=== PATIENT | female | born 1975 | race Caucasian/White ===

== ENCOUNTER 2016-11-14 15:05 | Outpatient (CLI) | payer OTHER, SELFPAY ==
[~2016-11-14] VITALS: Ht 175.3 cm; Wt 146.5 kg
[2016-11-16] MEDS ORDERED: IRON240 MG PO (10:49)
[2016-11-16] MEDS ORDERED: AMLODIPINE BESYL5 MG PO (10:49)
[2016-11-16] MEDS ORDERED: TRANDATE DPS100 MG PO (10:50)
[2016-11-16] MEDS ORDERED: PRENATAL VIT1 TAB PO (10:50)
--- NOTE | 2016-11-24 15:03 | HP ---
ADMIT: 11/14/2016 RM/LOC: 224 [facility] MR#: [id number] [address] [address] YENY DALILA D [address] [place] [address] History and Physical SEX: F AGE: 41 : 1975 DATE OF SERVICE: 11/14/2016 CHIEF COMPLAINT: Chronic hypertension with worsening blood pressures. HISTORY OF PRESENT ILLNESS: The patient is a 41-year-old, 4, para 1-1- 1-3 with an intrauterine at 34 and 1/7th weeks by a 9-week ultrasound, who presented to the [facility] for a routine OB visit today. She was also seen by [facility] due to her history of chronic hypertension and advanced maternal age. At that visit, her blood pressure was noted to be 160 systolic, and Dr. Falcon, perinatologist, did recommend admission to the hospital with serial blood pressure checks, 24-hour urine, and laboratory assessment for a possible superimposed preeclampsia or worsening chronic hypertension. The patient was agreeable to this plan and presented to the hospital for the above reasons. PAST MEDICAL HISTORY: 1. Chronic hypertension. 2. Anxiety. 3. Morbid obesity. 4. Anemia during . 5. History of preeclampsia in previous . 6. Fatty liver. PAST SURGICAL HISTORY: deliveries in 1999 and 2010. FAMILY HISTORY: Paternal side with hypertension. Maternal side with diabetes. Maternal grandfather with lung cancer. Maternal grandmother with heart disease. SOCIAL HISTORY: The patient denies alcohol, tobacco, or illicit drug use. 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 The patient is . MEDICATIONS: 1. vitamins 1 tablet p.o. daily. 2. Ferrous gluconate 1 tablet p.o. b.i.d. 3. Amlodipine besylate 5 mg 1 tablet p.o. daily. 4. Labetalol 500 mg p.o. b.i.d. ALLERGIES: NO KNOWN MEDICAL ALLERGIES. REVIEW OF SYSTEMS: The patient denies headaches, visual changes, right upper quadrant pain, vaginal bleeding, loss of fluid, uterine contractions, or decreased movement. LABORATORY DATA: Laboratory assessment today. CBC; white count 10.7, hemoglobin 10.3, hematocrit 31.2, and platelet count 237. CMP; sodium 143, potassium 3.5, chloride 109, CO2 of 23, BUN 7, creatinine 0.7, glucose 97, calcium 8.7, AST 52, ALT 100, total bilirubin 0.3, alkaline phosphatase 131, ADMIT: 11/14/2016 RM/LOC: 224 [facility] MR#: [id number] [address] [place] [id number] DALILA SAINI [address] [place] [address] History and Physical SEX: F AGE: 41 : 1975 uric acid 3.5, and LDH 148. A 24-hour urine is pending. PHYSICAL EXAMINATION: HEART: Regular rate and rhythm. LUNGS: Clear to auscultation bilaterally. ABDOMEN: Soft, nontender, gravid. EXTREMITIES: No clubbing, cyanosis, or edema. VITAL SIGNS: Blood pressures on admission to the hospital are in the 130s/70s to 80s, pulse 70s to 80s, and oxygen saturation 91% to 99% on room air. heart tones were noted in the 150s with 15 x 15 accelerations, moderate long-term variability, and no decelerations. No uterine contractions are noted on the monitor. ASSESSMENT AND PLAN: 1. This is a 41-year-old, 4, para 1-1-1-3, with intrauterine at 34 and 1/7th weeks by 9-week ultrasound, who presents to Labor and Delivery for monitoring due to chronic hypertension with worsening blood pressures. Currently, there is no evidence of preeclampsia. Labs were all normal. Blood pressures have been normal here. We will continue her 24-hour urine, and serial blood pressure checks as well as her home blood pressure medications. 2. For fatty liver, the patient's LFTs are improved from baseline. There is no concern for developing HELLP syndrome. 3. Fetus is reassuring on nonstress testing. Sally Mortensen MD/ ilsa JOB #: [id number] CC: Sally Mortensen, Attending Physician UNKNOWN, Family Physician
[2016-12-08] MEDS ORDERED: COLACE-DPS100 MG PO (13:14)
[2016-12-08] MEDS ORDERED: MOTRIN-DPS800 MG PO (13:14)
[2016-12-08] MEDS ORDERED: NIPPLECREAM TP (13:15)
[2016-12-08] MEDS ORDERED: PERCOCET 5 DPS1 TAB PO (13:15)
== END 2016-11-15 17:50 | disposition home or self-care (01) ==
LOC: BC 15:05 → 2LDRP 15:05 → BC 15:06 → 2LDRP 15:06 → WOR 16:47 → 2LDRP 11-15 11:16 → BC 11-15 11:16 → 2LDRP 11-15 17:50 → BC 11-15 17:50 → 2LDRP 11-15 17:50 → BC 12-25 08:00
DX: O16.1 Unspecified maternal hypertension, first trimester (principal); O99.011 Anemia complicating pregnancy, first trimester; F41.9 Anxiety disorder, unspecified; E66.01 Morbid (severe) obesity due to excess calories; K76.0 Fatty (change of) liver, not elsewhere classified; Z79.899 Other long term (current) drug therapy

== ENCOUNTER 2016-12-05 05:33 | Inpatient (IN) | payer OTHER, SELFPAY ==
[~2016-12-05] VITALS: Ht 172.7 cm; Wt 149.2 kg
[~2016-12-05 05:33] MED LIST: AMLODIPINE BESYL5 MG PO; IRON240 MG PO; PRENATAL VIT1 TAB PO; TRANDATE DPS100 MG PO
[2016-12-08] MEDS ORDERED: COLACE-DPS100 MG PO (13:14)
[2016-12-08] MEDS ORDERED: MOTRIN-DPS800 MG PO (13:14)
[2016-12-08] MEDS ORDERED: PERCOCET 5 DPS1 TAB PO (13:15)
[2016-12-08] MEDS ORDERED: NIPPLECREAM TP (13:15)
--- NOTE | 2017-01-24 03:27 | OR ---
ADMIT: 12/05/2016 RM/LOC: 223 [facility] MR#: [id number] [address] [facility] [address] [place] [id number] DALILA SAINI Dc [address] [place] [id number] Operative/Delivery Room Report SEX: F AGE: 41 : 1975 SURGERY DATE: 12/05/2016 SURGEON: Sally Mortensen MD PREOPERATIVE DIAGNOSES: 1. Intrauterine at 37-1/7th weeks gestation. 2. Previous x2. 3. Chronic hypertension with superimposed preeclampsia. POSTOPERATIVE DIAGNOSES: 1. Intrauterine at 37-1/7th weeks gestation. 2. Previous x2. 3. Chronic hypertension with superimposed preeclampsia. PROCEDURE: Repeat low transverse . ASSISTANTS: 1. Ernesto Ambrose MD. 2. Philly Bhakta MD., Resident. ANESTHESIA: Spinal. ESTIMATED BLOOD LOSS: 800 mL. URINE OUTPUT: 400 mL clear urine. IV FLUIDS: 1700 mL crystalloid. CONDITION: Good. COMPLICATIONS: None. COUNTS: Correct x4 per operating room staff. FINDINGS: 1. Viable male delivered in vertex presentation at 0741 hours. Weight 3170 g. scores 8 and 9. 2. Normal maternal anatomy. DESCRIPTION OF PROCEDURE: The patient was taken to the operating room where spinal anesthesia was obtained without difficulty. She was then prepared and draped in the normal sterile fashion in the dorsal supine position with a leftward tilt. A Pfannenstiel skin incision was then made with a scalpel and carried through to the underlying layer of fascia. The fascia was then incised in the midline and the incision extended laterally using the Anderson scissors. The superior aspect of the fascial incision was then grasped with the Zuly clamps, elevated, and the underlying rectus muscles dissected off with Bovie electrocautery. Attention was then turned to the inferior aspect of this incision which, in a similar fashion, was grasped with the Zuly clamps, ADMIT: 12/05/2016 RM/LOC: 223 [facility] MR#: [id number] [address] [address] DALILA SAINI [address] [place] [address] Operative/Delivery Room Report SEX: F AGE: 41 : 1975 elevated, and the underlying rectus muscles dissected off sharply. The rectus muscles were in the midline with Caty clamps and the peritoneum entered sharply with the Anderson scissors. A finger sweep revealed no intraabdominal adhesions. The scar tissue between the rectus muscles were taken down sharply with the Anderson scissors, and the peritoneal incision was then extended superiorly and inferiorly with good visualization of the bladder. The bladder blade was then inserted and the vesicouterine peritoneum identified, tented up, and entered sharply with the Metzenbaum scissors. The incision was then extended laterally and the bladder flap was created digitally. Palpation of the uterus revealed the fetus to be not well engaged in the pelvis. A uterine incision was then made on the upper portion of the lower uterine segment. The hysterotomy was then extended laterally manually. The membranes were ruptured using an Allis clamp. The head was unable to be delivered with usual maneuvers and two hands were inserted into the uterine cavity to deliver the 's vertex to the hysterotomy. We were then able to use fundal pressure to deliver the remainder of the fetus. A nuchal cord x2 was reduced. There was noted to be a true knot in the cord at this point in time, but it is unsure whether this was created by reduction of the nuchal cord. The cord was then doubly clamped and cut. The was handed off to the awaiting nurse. Cord blood was sent. The infant's weight was 3170 g. scores were 8 and 9. The placenta was then removed by fundal massage of the uterus. The uterus was then exteriorized and cleared of all clots and debris. The uterine incision was then repaired with #1 chromic in a running, locked fashion. Several chyfxw-kf-zhqlh stitches were used to obtain excellent hemostasis. The uterus was then returned to the abdomen. The gutters were cleared of all clots. The hysterotomy was reinspected and hemostasis was achieved with Bovie electrocautery. The fascial incision was then reapproximated with 0 Vicryl. The subcutaneous tissue was closed using 2-0 Vicryl Rapide. The skin was closed with 4-0 Vicryl Rapide. The patient tolerated the procedure well. Sponge, lap, needle counts were correct x4 per operating room staff. The patient and infant were taken to her room in stable condition at the conclusion of the procedure. EDIT: 12/06/2016 0639 njv Sally Mortensen MD/ ilsa JOB #: [id number] CC: Sally Mortensen, Attending Physician Elle Schrader, Family Physician
--- NOTE | 2017-01-24 03:27 | HP ---
ADMIT: 12/05/2016 RM/LOC: [facility] MR#: [id number] [address] [address] YENY DALILA Dc [address] [place] [address] Pre-OP History and Physical SEX: F AGE: 41 : 1975 DATE OF SERVICE: 12/05/2016 CHIEF COMPLAINT: Need for section. HISTORY OF PRESENT ILLNESS: The patient is a 41-year-old, G4, P1-1-1-3, with an intrauterine at 37-1/7 weeks by a 9-week ultrasound, who presents to Labor and Delivery for repeat at term secondary to chronic hypertension with superimposed preeclampsia. PAST MEDICAL HISTORY: 1. Morbid obesity. 2. Chronic hypertension with superimposed preeclampsia. 3. Anemia during . 4. Advanced maternal age. 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 6. Fatty liver with elevated liver enzymes. 7. Anxiety. PAST SURGICAL HISTORY: deliveries in 1999 and 2010. FAMILY HISTORY: Paternal side of family with hypertension. Maternal side of family with diabetes. Maternal grandfather with lung cancer. Maternal grandmother with coronary artery disease. SOCIAL HISTORY: The patient denies alcohol, tobacco, or illicit drug use. 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 She also attends [employer]. MEDICATIONS: 1. Labetalol 500 mg p.o. b.i.d. 2. Ferrous gluconate one tablet p.o. daily. 3. vitamins one tablet p.o. daily. 4. Colace 100 mg p.o. daily. 5. Amlodipine besylate 5 mg one tablet p.o. daily. ALLERGIES: NO KNOWN MEDICAL ALLERGIES. REVIEW OF SYSTEMS: The patient denies vaginal bleeding, uterine contractions, loss of fluid, or decreased movement. OBSTETRIC LABORATORY DATA: Blood type O positive. Antibody screen negative. RPR nonreactive. Rubella immune. HIV negative. Gonorrhea and chlamydia negative. Pap smear negative for intraepithelial lesion or malignancy. High- risk HPV not detected. Hepatitis B surface antigen negative. Diabetic screen 99. Group B strep positive. PHYSICAL EXAMINATION: GENERAL: A well-developed, well-nourished white female, alert and oriented x3, in no acute distress. VITAL SIGNS: Blood pressure 138/84. Height 5 feet 8 inches. Weight 325 pounds. HEENT: Head is normocephalic, atraumatic. Pupils are equal and round. ADMIT: 12/05/2016 RM/LOC: [facility] MR#: [id number] [address] [address] DALILA SAINI [address] [place] [address] Pre-OP History and Physical SEX: F AGE: 41 : 1975 Extraocular muscles are intact. NECK: Supple. Trachea midline. Thyroid not palpable. HEART: Regular rate and rhythm. LUNGS: Clear to auscultation bilaterally. ABDOMEN: Soft, nontender, and gravid. EXTREMITIES: No clubbing, cyanosis, or edema. NEUROLOGIC: Cranial nerves II through XII grossly intact. Deep tendon reflexes 2+ noted. ASSESSMENT AND PLAN: This is a 41-year-old 4, para 1-1-1-3 with an intrauterine at 37-1/7 weeks by a 9-week ultrasound, who presents to Labor and Delivery for repeat low transverse at term secondary to chronic hypertension with superimposed preeclampsia. The risks and benefits of surgery have been discussed with the patient, who expressed her understanding and agrees to proceed. The surgery has been scheduled for December 05, 2016. Sally Mortensen MD/ ilsa JOB #: [id number] CC: Sally Mortensen, Attending Physician Elle Schrader, Family Physician
--- NOTE | 2017-03-05 17:41 | DS ---
ADMIT: 12/05/2016 RM/LOC: 223 [facility] MR#: [id number] [address] [address] YENY DALILA Dc [address] [place] [id number] General Discharge Summary SEX: F AGE: 41 : 1975 ADMISSION DATE: 12/05/2016 DISCHARGE DATE: 12/07/2016 ADMISSION DIAGNOSES: 1. A 41-year-old 4 para 1-1-1-3 with an intrauterine at 37- 1/7th weeks. 2. Morbid obesity. 3. Chronic hypertension with superimposed preeclampsia. 4. Anemia during . 5. Advanced maternal age. 6. Group B Strep carrier. 7. Fatty liver with elevated liver enzymes. 8. Anxiety. DISCHARGE DIAGNOSES: 1. Status post repeat low transverse . 2. Morbid obesity. 3. Chronic hypertension with superimposed preeclampsia. 4. Anemia during . 5. Advanced maternal age. 6. Group B Strep carrier. 7. Fatty liver with elevated liver enzymes. 8. Anxiety. SERVICE: Obstetrics. PHYSICIAN: Sally Mortensen MD. CONSULTS: None. PROCEDURE: Repeat low transverse on 12/05/2016. HISTORY AND PHYSICAL EXAMINATION: Briefly, the patient is a 41-year-old 4 para 1-1-1-3 with intrauterine at 37-1/7th weeks by 9-week ultrasound, who presented to Labor and Delivery for repeat low transverse C- section at term secondary to chronic hypertension with superimposed preeclampsia. Please see dictated history and physical exam for more information. HOSPITAL COURSE: On hospital day #1, the patient was admitted and underwent repeat low transverse without complications. Please see dictated operative report for more information. On postoperative day #1, the patient's pain was well controlled, vital signs were stable with the exception of one severe range pressure. Hemoglobin had decreased appropriately and iron supplementation was continued. On postoperative day #2, the patient continued to improve. She was breast feeding, ambulating, voiding, and passing gas. Blood pressures were in the mild range, and the patient was felt to be stable for ADMIT: 12/05/2016 RM/LOC: 223 [facility] MR#: [id number] [id number] [address] DALILA SAINI [address] [place] [address] General Discharge Summary SEX: F AGE: 41 : 1975 discharge. DISPOSITION: Discharged to home. DISCHARGE CONDITION: Good. DISCHARGE MEDICATIONS: 1. Colace 100 mg p.o. b.i.d. 2. Iron sulfate 325 mg p.o. daily. 3. Norvasc 5 mg p.o. at bedtime. 4. vitamin 1 tablet p.o. daily. 5. Trandate 500 mg p.o. b.i.d. 6. Motrin 800 mg p.o. q.8 hours p.r.n. pain. 7. Percocet 5/325 one to two p.o. q.4 hours p.r.n. pain. 8. Sim's Nipple Cream, one application to nipple as needed. DISCHARGE INSTRUCTIONS: The patient is to maintain pelvic rest for six weeks. No driving while taking narcotics and no lifting greater than 15 pounds. The patient is to follow up at the [facility] in one week for an incision and blood pressure check, and in six weeks for a check up with Dr. Mortensen. The patient was instructed to call the clinic or return to the nearest emergency room should she experience pain not controlled by pain medications, heavy vaginal bleeding, intractable nausea or vomiting, temperature greater than 100.4 degrees Fahrenheit, or any incisional concerns. Sally Mortensen MD/ ilsa JOB #: [id number] CC: Sally Mortensen MD, Attending Physician Elle Schrader MD, Family Physician
== END 2016-12-07 12:25 | disposition home or self-care (01) | DRG 765 ==
LOC: BC 05:33 → 2LDRP 05:33 → BC 12-25 09:26
PROVIDERS: ADMIT Obstetrics & Gynecology
PROC: 10D00Z1 Extraction of Products of Conception, Low, Open Approach (ICD-10-PCS; principal; 2016-12-05)
DX: O11.4 Pre-existing hypertension with pre-eclampsia, complicating childbirth (principal); Z68.42 Body mass index [BMI] 45.0-49.9, adult; O34.211 Maternal care for low transverse scar from previous cesarean delivery; O10.92 Unspecified pre-existing hypertension complicating childbirth; O99.02 Anemia complicating childbirth; D64.9 Anemia, unspecified; O99.214 Obesity complicating childbirth; E66.01 Morbid (severe) obesity due to excess calories; Z3A.37 37 weeks gestation of pregnancy; Z37.0 Single live birth